=== PATIENT | female | born 1995 | race Caucasian/White ===

== ENCOUNTER 2017-05-05 20:32 | Emergency (ER) | payer OTHER ==
[2017-05-05 20:32] VITALS: BMI 26.5
[2017-05-05 20:36] VITALS: BP 127/71; PULSE 91; TEMP 99
[2017-05-05] MEDS ORDERED: Vancomycin 1gm in NS 250ml 1 GM/250 ML BAG IVPB STA (21:24)
--- NOTE | 2017-05-05 21:31 | ED PDOC ---
Arrival/HPI - General Chief Complaint: Abnormal Skin Integrity Time Seen by Provider: 05/05/17 20:40 Historian: Patient - History of Present Illness Narrative History of Present Illness (Text): 05/05/17 21:28 Patient is a 21-year-old female with history of IV drug use, complains of a painful mass of gradually increasing size of the left forearm 4 days. Otherwise: (-) foreign body, (-) fever, (-) chills, (-) numbness, (-) decrease in ROM, (-) recent antibiotic use. PMD : Carly Past Medical History - Provider Review Nursing Documentation Reviewed: Yes - Psychiatric Hx Substance Use: Yes (heroin, marijuana, cocaine) - Surgical History Other/Comment: Hx renal Family/Social History - Physician Review Nursing Documentation Reviewed: Yes Family/Social History: No Known Family HX Smoking Status: Heavy Smoker > 10 Cigarettes Daily Hx Alcohol Use: No Hx Substance Use: Yes (heroin, marijuana, cocaine) Substance used: heroin yesterday Allergies/Home Meds Allergies/Adverse Reactions: Allergies No Known Allergies Allergy (Verified 03/08/16 19:43) Review of Systems - Review of Systems Constitutional: Normal. absent: Fatigue, Weight Change, Fevers Respiratory: Normal. absent: SOB, Cough, Sputum Cardiovascular: Normal. absent: Chest Pain, Palpitations, Edema Musculoskeletal: Normal. absent: Arthralgias, Back Pain, Neck Pain Skin: Normal, Abscess. absent: Rash, Pruritis, Skin Lesions Physical Exam - Physical Exam Narrative Physical Exam (Text): 05/05/17 21:29 GENERAL APPEARANCE: Patient is awake, alert, oriented x 3, in mild painful distress. Skin: warm and dry, +3 x 3 cm erythematous, tender, slightly fluctuant abscess to the L medial forearm with surrounding induration but no surrounding erythema. Pulmonary: lungs clear, no rhonchi, no wheezing. Cardiac: regular rate and rhythm, no murmur, no gallop. Abdomen: soft, nontender. Extremities: no deformity, full range of motion, no tenderness, distal pulses 2 +, distal sensation intact. Vital Signs Temp Pulse Resp BP Pulse Ox 05/05/17 22:19 18 98 05/05/17 20:36 99 F 91 H 16 127/71 100 Medical Decision Making ED Course and Treatment: 05/05/17 21:31 21-year-old female with history of IV drug use, complains of a painful mass of gradually increasing size of the left forearm 4 days. Plan: - Labs - IV - Blood cx - Vancomycin 1 g IV - Toradol IV - Tdap IM Prior to procedure "time out" was called in order to confirm the correct patient and procedure. Through aseptic technique, local anesthesia was administered to abscess, incision and drainage of abscess was performed by PA which produced purulent material. Wound packing was inserted to the wound. Clean dressing was applied. After I&D, patient is immediately requesting to sign out AMA, labs ordered is still pending and she is refusing to wait for lab results. IV vancomycin was just started by the RN and she is refusing for the IV infusion of the vancomycin. Patient notified of the importance of receiving at least the IV vancomycin and to wait for lab results, however she is refusing to wait, adding that she really wants to leave and will come back tomorrow if she feels like it. Patient refuses further care, evaluation or treatment in the ER. Patient informed of the reasons for the following and planned treatment, which patient understands, however still refuses. Patient informed of the risk and benefits of treatment. Informed that the risk could include worsening of current conditions, undiagnosed conditions, disability or even . Patient understands the following risk and the benefits of treatment. Patient has the capacity to make decisions and still refuses treatment by RN, PA and ER MD. Patient encouraged to return to the ER at any time and to follow up with pmd. Patient states she fully agrees with and understands the risk of leaving AMA, given Rx for bactrim and keflex. Verbalized and repeated follow up instructions and plan. I have given the patient opportunity to ask any additional questions. Follow up with primary care physician in 1-2 days without fail. Advised to take medication as prescribed. Return to the emergency room at any time for any new or worsening symptoms. - Lab Interpretations Lab Results: 05/05/17 21:00 Lab Results 05/05/17 21:00: WBC 12.3 H, RBC 4.53, Hgb 13.0, Hct 39.6, MCV 87.4, MCH 28.7, MCHC 32.8, RDW 14.9 H, Plt Count 312, MPV 10.3, Gran % 73.2 H, Lymph % (Auto) 19.8 L, Mellette % (Auto) 4.9, Eos % (Auto) 1.9, Baso % (Auto) 0.2, Gran # 9.01 H, Lymph # 2.4, Mellette # 0.6, Eos # 0.2, Baso # 0.03 - Medication Orders Current Medication Orders: Discontinued Medications Vancomycin HCl (Vancomycin 1gm) 1 gm in 250 mls @ 167 mls/hr IVPB STAT STA PRN Reason: Protocol Stop: 05/05/17 22:53 Last Admin: 05/05/17 21:46 Dose: 167 mls/hr Ketorolac Tromethamine (Toradol) 30 mg IVP STAT STA Stop: 05/05/17 21:28 Last Admin: 05/05/17 21:45 Dose: 30 mg Lidocaine HCl (Lidocaine 1% (20ml)) Confirm Administered Dose 20 ml .ROUTE .ACTION [employer]ORTS- MED ONE Stop: 05/05/17 21:40 - PA / LIFT MECHANIC / Resident Statement / has reviewed & agrees with the documentation as recorded. Disposition/Present on Arrival - Present on Arrival Any Indicators Present on Arrival: No History of DVT/PE: No History of Uncontrolled Diabetes: No Urinary Catheter: No History of Decub. Ulcer: No History Surgical Site Infection Following: None - Disposition Have Diagnosis and Disposition been Completed?: Yes Diagnosis: Abscess, IV drug user Disposition: AGAINST MEDICAL ADVICE Disposition Time: 22:00 Patient Plan: Other (Pt left AMA) Condition: SERIOUS Discharge Instructions (ExitCare): Abscess (ED), Against Medical Advice (ED) Print Language: MARTINIQUAIS Additional Instructions: Follow up with primary care physician in 1-2 days without fail. Take medication as prescribed. Return to the emergency room at any time for any new or worsening symptoms Prescriptions: Cephalexin [Keflex] 500 mg PO Q6 #28 capsule Sulfamethoxazole/Trimethoprim [Bactrim DS 800 mg-160 mg] 2 tab PO BID #28 tab Referrals: Lashaun Allen MD [Primary Care Provider] - Follow up with primary Forms: [employer] (Upper Sorbian)
[2017-05-05] MEDS ORDERED: Lidocaine 1% Inj (20ml) ONE (21:39)
[2017-05-05 21:56] LABS: BASO # 0.03 K/mm3 (0.0-2.0); BASO % 0.2 % (0.0-3.0); EOS # 0.2 (0.0-0.7); EOS % 1.9 % (1.5-5.0); GRAN # 9.01 (1.4-6.5); GRAN % 73.2 % (50.0-68.0); LYMPH # 2.4 (1.2-3.4); LYMPH % 19.8 % (22.0-35.0); MEAN CELL VOLUME 87.4 fL (80.0-105.0); MEAN CORPUSCULAR HEMOGLOBIN 28.7 pg (25.0-35.0); MEAN CORPUSCULAR HGB CONC 32.8 g/dl (31.0-37.0); MEAN PLATELET VOLUME 10.3 fl (7.0-11.0); MONO # 0.6 (0.1-0.6); MONO % 4.9 % (1.0-6.0); PLATELET COUNT 312 10^3/uL (120.0-450.0); RBC 4.53 10^6/uL (3.5-6.1); RED CELL DISTRIBUTION WIDTH 14.9 % (11.5-14.5); WHITE BLOOD COUNT 12.3 10^3/ul (4.5-11.0)
[2017-05-05 22:07] LABS: ALB/GLOB RATIO 1.2 (1.1-1.8); ALBUMIN 3.6 g/dL (3.0-4.8); ALT/SGPT 18 U/L (7-56); AST/SGOT 23 U/L (15-39); BLOOD UREA NITROGEN 9 mg/dL (7-21); CALCIUM 8.4 mg/dL (8.4-10.5); GFR AFRICAN-AMERICAN > 60; GFR NON-AFRICAN AMERICAN > 60
[2017-05-05 22:20] VITALS: RESP 18; O2SAT 98
[2017-05-05] MEDS ORDERED: TDAP Vaccine 0.5 mL Syr IM ONE (22:34)
== END 2017-05-05 22:20 | disposition left against medical advice (07) ==
LOC: ED 20:32
DX: L02.414 Cutaneous abscess of left upper limb (principal); F19.90 Other psychoactive substance use, unspecified, uncomplicated; F17.210 Nicotine dependence, cigarettes, uncomplicated
CPT/HCPCS: 10060; 80053; 85025; 87040; 96374; 96375; 99284; J1885

== ENCOUNTER 2017-11-11 18:50 | Emergency (ER) | payer OTHER ==
[2017-11-11 18:52] VITALS: BMI 26.5
[2017-11-11 19:48] VITALS: TEMP 97.8
--- NOTE | 2017-11-11 19:48 | ED PDOC ---
Arrival/HPI - General Chief Complaint: Substance Abuse Time Seen by Provider: 11/11/17 18:56 Historian: Patient - History of Present Illness Narrative History of Present Illness (Text): 11/11/17 19:40 A 22 year old female, whose past medical history includes heroin abuse, is brought in by [facility] and presents to the emergency department AMS s/p injection of heroin. Patient was found unresponsive few minutes after injecting 1 bag of heroin. Patient received intranasal Narcan by S. Awoke and returned back to baseline, awake and alert mental status. Patient states she has been in withdrawal for past few days and tried not to perform substance abuse. However tonight patient resulted in doing so. Patient denies any other substances or EtOH. Patient desires to go home at this time. Currently on menstrual period No PMD Symptom Onset: Sudden Symptom Course: Unchanged Past Medical History - Provider Review Nursing Documentation Reviewed: Yes - Infectious Disease Hx of Infectious Diseases: None - Renal Other/Comment: Kidney failure as a child - Psychiatric Hx Substance Use: Yes (heroin, marijuana, cocaine) Other/Comment: Substance abuse - Surgical History Other/Comment: Hx renal Family/Social History - Physician Review Nursing Documentation Reviewed: Yes Family/Social History: No Known Family HX Smoking Status: Heavy Smoker > 10 Cigarettes Daily Hx Alcohol Use: No Hx Substance Use: Yes (heroin, marijuana, cocaine) Substance used: heroin today Allergies/Home Meds Allergies/Adverse Reactions: Allergies No Known Allergies Allergy (Verified 11/11/17 18:57) Home Medications: Home Meds Medication Instructions Recorded Confirmed No Known Home Med 11/11/17 11/11/17 Review of Systems - Physician Review All systems were reviewed & negative as marked: Yes - Review of Systems Constitutional: absent: Fevers, Night Sweats Respiratory: absent: SOB, Cough Cardiovascular: absent: Chest Pain Gastrointestinal: absent: Abdominal Pain, Diarrhea, Nausea, Vomiting Psychiatric: absent: Suicidal Ideation Physical Exam Vital Signs Reviewed: Yes Vital Signs Temp Pulse Resp BP Pulse Ox 11/11/17 19:45 97.8 F 119 H 18 126/86 100 11/11/17 18:57 98.1 F 88 21 122/70 100 Temperature: Afebrile Blood Pressure: Normal Pulse: Regular Respiratory Rate: Normal Appearance: Positive for: Well-Appearing Pain Distress: None Mental Status: Positive for: Alert and Oriented X 3 - Systems Exam Head: Present: Atraumatic, Normocephalic Pupils: Present: PERRL Extroacular Muscles: Present: EOMI Conjunctiva: Present: Normal Mouth: Present: Moist Mucous Membranes Neck: Present: Normal Range of Motion Respiratory/Chest: Present: Clear to Auscultation, Good Air Exchange. No: Respiratory Distress, Accessory Muscle Use Cardiovascular: Present: Regular Rate and Rhythm, Normal S1, S2. No: Murmurs Abdomen: Present: Normal Bowel Sounds. No: Tenderness, Distention, Peritoneal Signs Back: Present: Normal Inspection Upper Extremity: Present: Normal Inspection. No: Cyanosis, Edema Lower Extremity: Present: Normal Inspection. No: Edema Neurological: Present: GCS=15, CN II-XII Intact, Speech Normal, Other ( ambulatory without deficits) Skin: Present: Warm, Dry, Normal Color. No: Rashes Psychiatric: Present: Alert, Oriented x 3, Normal Insight, Normal Concentration Medical Decision Making ED Course and Treatment: 11/11/17 19:43 Impression: 22 year old female brought in [facility] AMS s/p heroin injection. No acute findings on physical examination; patient is ambulatory without deficits. Plan: -- Reassess and disposition Prior Visits: Notes and results from previous visits were reviewed. Patient was last seen in the emergency department on 05/05/2017 for painful mass of gradually increasing size of the left forearm. Patient left ama. Progress Notes: \ 11/11/17 20:24 awake alert oriented and ambulatory. Still insisting on discharge. She does not want detox and she does not want transport to a half-way. - Scribe Statement The provider has reviewed the documentation as recorded by the Will Mg Provider Scribe Attestation: All medical record entries made by the Charityibprasad were at my direction and personally dictated by me. I have reviewed the chart and agree that the record accurately reflects my personal performance of the history, physical exam, medical decision making, and the department course for this patient. I have also personally directed, reviewed, and agree with the discharge instructions and disposition. Disposition/Present on Arrival - Present on Arrival Any Indicators Present on Arrival: No History of DVT/PE: No History of Uncontrolled Diabetes: No Urinary Catheter: No History of Decub. Ulcer: No History Surgical Site Infection Following: None - Disposition Have Diagnosis and Disposition been Completed?: Yes Diagnosis: Heroin abuse Disposition: HOME/ ROUTINE Disposition Time: 20:30 Patient Plan: Discharge Condition: IMPROVED Additional Instructions: Consider detox program at [facility] in [place]. Penitentiary information has been provided. Forms: [employer] (Latvian)
[2017-11-11 20:35] VITALS: BP 128/86; PULSE 95; RESP 16; O2SAT 99
--- NOTE | 2017-11-12 15:59 | CARD ---
APPROVED REPORT EKG Measurement Heart [id number] WA 114P-16 [id number] <Conclusion> Normal sinus rhythm Right axis deviation RSR' or QR pattern in V1 suggests right ventricular conduction delay Cannot rule out Inferior infarct, age undetermined Abnormal ECG
== END 2017-11-11 20:35 | disposition home or self-care (01) ==
LOC: ED 18:50
DX: F11.10 Opioid abuse, uncomplicated (principal)

== ENCOUNTER 2018-08-31 11:03 | Emergency (ER) | payer MEDICAID, OTHER ==
[2018-08-31 11:07] VITALS: BMI 21.6
[2018-08-31 11:17] VITALS: RESP 18; O2SAT 100
--- NOTE | 2018-08-31 11:42 | ED PDOC ---
Arrival/HPI - General Historian: Patient - History of Present Illness Narrative History of Present Illness (Text): 08/31/18 11:39 23yo female with history of substance abuse who was bib [facility] for heroine/cocaine withdrawal. Patient states the last time she used drug was 3days ago and while she was on her way to get a bag she was arrested. complaining of generalized bodyache. Denies focal chest pain, SOB, nausea, vomiting, diarrhea, abdominal pain, fever, any other complaint. <Radha Morris A - Last Filed: 08/31/18 18:30> <Bernardino Westfall - Last Filed: 08/31/18 19:02> - General Chief Complaint: Substance Abuse Past Medical History - Provider Review Nursing Documentation Reviewed: Yes - Infectious Disease Hx of Infectious Diseases: None - Renal Other/Comment: Kidney failure as a child - Psychiatric Hx Substance Use: Yes (heroin/coccaine) Other/Comment: Substance abuse - Surgical History Other/Comment: Hx renal - Anesthesia Hx Anesthesia: No <Radha Morris A - Last Filed: 08/31/18 18:30> Family/Social History - Physician Review Nursing Documentation Reviewed: Yes Family/Social History: Unknown Family HX Smoking Status: Heavy Smoker > 10 Cigarettes Daily Hx Alcohol Use: No Hx Substance Use: Yes (heroin/coccaine) Substance used: heroin today <Radha Morris A - Last Filed: 08/31/18 18:30> Allergies/Home Meds <AlexandraHappiness A - Last Filed: 08/31/18 18:30> <Bernardino Westfall - Last Filed: 08/31/18 19:02> Allergies/Adverse Reactions: Allergies No Known Allergies Allergy (Verified 11/11/17 18:57) Review of Systems - Physician Review All systems were reviewed & negative as marked: Yes - Review of Systems Constitutional: Normal Eyes: Normal ENT: Normal Respiratory: Normal Cardiovascular: Normal Gastrointestinal: Normal Genitourinary Female: Normal Musculoskeletal: Myalgias Skin: Normal Neurological: Normal Endocrine: Normal Hemo/Lymphatic: Normal Psychiatric: Normal <AlexandraHappiness A - Last Filed: 08/31/18 18:30> Physical Exam Vital Signs Reviewed: Yes Vital Signs Temp Pulse Resp BP Pulse Ox 08/31/18 11:03 98.2 F 70 18 108/69 100 Temperature: Afebrile Blood Pressure: Normal Pulse: Regular Respiratory Rate: Normal Appearance: Positive for: Well-Appearing, Non-Toxic, Comfortable, Unkept Pain Distress: None Mental Status: Positive for: Alert and Oriented X 3 - Systems Exam Head: Present: Atraumatic, Normocephalic Pupils: Present: PERRL Extroacular Muscles: Present: EOMI Conjunctiva: Present: Normal Mouth: Present: Moist Mucous Membranes Neck: Present: Normal Range of Motion Respiratory/Chest: Present: Clear to Auscultation, Good Air Exchange. No: Respiratory Distress, Accessory Muscle Use Cardiovascular: Present: Regular Rate and Rhythm, Normal S1, S2. No: Murmurs Abdomen: No: Tenderness, Distention, Peritoneal Signs Back: Present: Normal Inspection Upper Extremity: Present: Normal Inspection. No: Cyanosis, Edema Lower Extremity: Present: Normal Inspection. No: Edema Neurological: Present: GCS=15, CN II-XII Intact, Speech Normal Skin: Present: Warm, Dry, Normal Color. No: Rashes Psychiatric: Present: Alert, Oriented x 3, Normal Insight, Normal Concentration <Radha Morris A - Last Filed: 08/31/18 18:30> Vital Signs Temp Pulse Resp BP Pulse Ox 08/31/18 12:20 98.3 F 73 18 110/65 100 08/31/18 11:03 98.2 F 70 18 108/69 100 <Bernardino Westfall - Last Filed: 08/31/18 19:02> Medical Decision Making ED Course and Treatment: 08/31/18 18:30 PT was bib [facility] for stated history. She was not in any distress. No pilorection. No vomiting/diarrhea, any focal complaint. She was given Toradol for pain and was DC. Advised to f/u with drug detox program - Medication Orders Current Medication Orders: Ketorolac Tromethamine (Toradol) 30 mg IM STAT STA Stop: 08/31/18 11:39 <AlexandraHappiness A - Last Filed: 08/31/18 18:30> - Medication Orders Current Medication Orders: Discontinued Medications Ketorolac Tromethamine (Toradol) 30 mg IM STAT STA Stop: 08/31/18 11:39 Last Admin: 08/31/18 11:55 Dose: 30 mg MAR Pain Assessment Document 08/31/18 11:55 SRE (Rec: 08/31/18 11:56 SRE [id number]) Pain Reassessment Is this a pain reassessment? Yes Sleep Is patient sleeping during reassessment? No Presence of Pain Presence of Pain Yes Pain Scale Used Protocol: PSCALES Pain Scale Used Numeric Location Pain Location Body Site Generalized Description Description Constant Pain Behavior Moaning IM Administration Charges Document 08/31/18 11:55 SRE (Rec: 08/31/18 11:56 [id number]) Charges for Administration # of IM Administrations 1 <Bernardino Westfall - Last Filed: 08/31/18 19:02> - PA / LIFE SCIENCE TAXONOMIST / Resident Statement / has reviewed & agrees with the documentation as recorded. <Bernardino Westfall - Last Filed: 08/31/18 19:02> Disposition/Present on Arrival - Present on Arrival Any Indicators Present on Arrival: No History of DVT/PE: No History of Uncontrolled Diabetes: No Urinary Catheter: No History of Decub. Ulcer: No History Surgical Site Infection Following: None - Disposition Have Diagnosis and Disposition been Completed?: Yes Disposition Time: 11:45 Patient Plan: Discharge <Radha Morris - Last Filed: 08/31/18 18:30> <Bernardino Westfall - Last Filed: 08/31/18 19:02> - Disposition Diagnosis: Substance abuse, Myalgia Disposition: HOME/ ROUTINE Condition: STABLE Discharge Instructions (ExitCare): Muscle and Bone Pain (DC), Drug Abuse and Drug Addiction (DC), Drug Abuse Treatment Additional Instructions: Stop using drugs Follow up with your Doctor/clinic Return to ED for any new or worsening symptom Patient medically cleared for incarceration Prescriptions: RX: Ibuprofen [Motrin Tab] 600 mg PO Q6 #15 tab Referrals: Sarita Valencia MD [Medical Doctor] - Follow up with primary Forms: [employer] (Montenegrin)
[2018-08-31 12:21] VITALS: BP 110/65; PULSE 73; TEMP 98.3
== END 2018-08-31 12:00 | disposition home or self-care (01) ==
LOC: ED 11:03
DX: F19.10 Other psychoactive substance abuse, uncomplicated (principal); M79.10 Myalgia, unspecified site
CPT/HCPCS: 96372; 99283; J1885

== ENCOUNTER 2018-08-31 17:04 | Emergency (ER) | payer MEDICAID, OTHER ==
[2018-08-31 17:04] VITALS: BMI 21.6
--- NOTE | 2018-08-31 17:09 | ED PDOC ---
Arrival/HPI - General Historian: Patient - History of Present Illness Narrative History of Present Illness (Text): 08/31/18 17:10 23yo female with history of substance abuse who was bib [facility] for psychiatric clearance. Per [facility], they new policy requires patient to be cleared both me dically and psychiatrically before incarceration. Patient was seen in ED earlier for withdrawal from heroine use and was cleared medically then. She denies hallucination, SI/HI, anxiety, depression any current somatic complaint. <DiruHappiness A - Last Filed: 08/31/18 17:05> Past Medical History - Provider Review Nursing Documentation Reviewed: Yes - Infectious Disease Hx of Infectious Diseases: None - Renal Other/Comment: Kidney failure as a child - Psychiatric Hx Substance Use: Yes (heroin/coccaine) Other/Comment: Substance abuse - Surgical History Other/Comment: Hx renal - Anesthesia Hx Anesthesia: No <DiruHappiness A - Last Filed: 08/31/18 17:05> Family/Social History - Physician Review Nursing Documentation Reviewed: Yes Family/Social History: Unknown Family HX Smoking Status: Heavy Smoker > 10 Cigarettes Daily Hx Alcohol Use: No Hx Substance Use: Yes (heroin/coccaine) Substance used: heroin today <DiruHappiness A - Last Filed: 08/31/18 17:05> Allergies/Home Meds <DiruHappiness A - Last Filed: 08/31/18 17:05> <Bernardino Westfall - Last Filed: 08/31/18 19:01> Allergies/Adverse Reactions: Allergies No Known Allergies Allergy (Verified 11/11/17 18:57) Review of Systems - Physician Review All systems were reviewed & negative as marked: Yes - Review of Systems Constitutional: Normal, Other (For psych clearance) Eyes: Normal ENT: Normal Respiratory: Normal Cardiovascular: Normal Gastrointestinal: Normal Genitourinary Female: Normal Musculoskeletal: Normal Skin: Normal Neurological: Normal Endocrine: Normal Hemo/Lymphatic: Normal Psychiatric: Normal <DiruHappiness A - Last Filed: 08/31/18 17:05> Physical Exam Vital Signs Reviewed: Yes Temperature: Afebrile Blood Pressure: Normal Pulse: Regular Respiratory Rate: Normal Appearance: Positive for: Well-Appearing, Non-Toxic, Comfortable Pain Distress: None Mental Status: Positive for: Alert and Oriented X 3 - Systems Exam Head: Present: Atraumatic, Normocephalic Pupils: Present: PERRL Extroacular Muscles: Present: EOMI Conjunctiva: Present: Normal Mouth: Present: Moist Mucous Membranes Neck: Present: Normal Range of Motion Respiratory/Chest: Present: Clear to Auscultation, Good Air Exchange. No: Respiratory Distress, Accessory Muscle Use Cardiovascular: Present: Regular Rate and Rhythm, Normal S1, S2. No: Murmurs Abdomen: No: Tenderness, Distention, Peritoneal Signs Back: Present: Normal Inspection Upper Extremity: Present: Normal Inspection. No: Cyanosis, Edema Lower Extremity: Present: Normal Inspection. No: Edema Neurological: Present: GCS=15, CN II-XII Intact, Speech Normal Skin: Present: Warm, Dry, Normal Color. No: Rashes Psychiatric: Present: Alert, Oriented x 3, Normal Insight, Normal Concentration <Radha Morris A - Last Filed: 08/31/18 17:05> Vital Signs Temp Pulse Resp BP Pulse Ox 08/31/18 17:34 98.9 F 74 18 110/71 100 08/31/18 17:05 98.9 F 74 18 110/69 100 <Bernardino Westfall - Last Filed: 08/31/18 19:01> Medical Decision Making ED Course and Treatment: 08/31/18 17:06 PT in ED for medical and psychiatric clearance for incarceration. She was seen here earlier and brought back by [facility] per they new policy that also request psychiatrist clearance in addition to medical clearance. PT denies any psych complaint, SI/HI. She also denied any somatic complaint. she was smiling and laughing in ED, in no distress. Hemodynamically stable. Patient was also seen in ED by Dr. Westfall who also denies any psychiatric complaint. <Radha Morris A - Last Filed: 08/31/18 17:05> - PA / MATTRESS STRIPPER / Resident Statement MD/DO has reviewed & agrees with the documentation as recorded. <Bernardino Westfall - Last Filed: 08/31/18 19:01> Disposition/Present on Arrival - Present on Arrival Any Indicators Present on Arrival: No History of DVT/PE: No History of Uncontrolled Diabetes: No Urinary Catheter: No History Surgical Site Infection Following: None - Disposition Have Diagnosis and Disposition been Completed?: Yes Disposition Time: 17:05 Patient Plan: Discharge <Radha Morris A - Last Filed: 08/31/18 17:05> <Bernardino Westfall - Last Filed: 08/31/18 19:01> - Disposition Diagnosis: Substance abuse, Myalgia Disposition: RELEASED IN POLICE CUSTODY Condition: STABLE Discharge Instructions (ExitCare): Muscle and Bone Pain (DC), Drug Abuse and Drug Addiction (DC), Drug Abuse Treatment Additional Instructions: Follow up with your doctor Return to ED for any new or worsening symptoms Patient is medically and psychiatric cleared for incarceration Referrals: Sarita Valencia MD [Medical Doctor] - Follow up with primary Forms: [employer] (Malian)
[2018-08-31 17:18] VITALS: PULSE 74; RESP 18; TEMP 98.9; O2SAT 100
[2018-08-31 17:39] VITALS: BP 110/71
== END 2018-08-31 17:28 ==
LOC: ED 17:04
DX: F19.10 Other psychoactive substance abuse, uncomplicated (principal); M79.10 Myalgia, unspecified site; F17.210 Nicotine dependence, cigarettes, uncomplicated